=== PATIENT | male | born 1960 | race Caucasian/White ===

== ENCOUNTER 2021-06-23 17:01 | Emergency (ER) | payer SELFPAY ==
[2021-06-23 17:23] VITALS: BP 150/84; PULSE 98; TEMP 98.8; BMI 25.0
[2021-06-23] MEDS ORDERED: ALPRAZolam 0.25 MG TABLET PO ONE (17:42)
[2021-06-23] MEDS ORDERED: ALPRAZolam 0.25 MG TABLET ONE (18:02)
== END 2021-06-23 19:01 | disposition home or self-care (01) ==
LOC: JER 17:01
DX: F43.20 Adjustment disorder, unspecified (principal)
CPT/HCPCS: 99283-25